=== PATIENT | female | born 1995 | race Caucasian/White ===

== ENCOUNTER 2017-01-04 23:14 | Emergency (ER) | payer OTHER ==
[2017-01-04 23:42] VITALS: BP 124/89; PULSE 72; TEMP 98.3; BMI 21.9
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
== END 2017-01-05 00:56 | disposition home or self-care (01) ==
LOC: JER 23:14
PROC: 0HQ1XZZ Repair Face Skin, External Approach (ICD-10-PCS; principal; 2017-01-04)
DX: S01.112A Laceration without foreign body of left eyelid and periocular area, initial encounter (principal); Y04.2XXA Assault by strike against or bumped into by another person, initial encounter; Y93.89 Activity, other specified; Y92.89 Other specified places as the place of occurrence of the external cause; Y99.8 Other external cause status
CPT/HCPCS: 99282-25

== ENCOUNTER 2022-12-17 16:49 | Emergency (ER) | payer OTHER ==
[2022-12-17 17:27] VITALS: BP 129/78; PULSE 93; RESP 18; TEMP 98.2
== END 2022-12-17 17:30 | disposition left against medical advice (07) ==
LOC: JER 16:49
DX: Z53.9 Procedure and treatment not carried out, unspecified reason (principal)
CPT/HCPCS: 99281-25

== ENCOUNTER 2022-12-17 18:16 | Emergency (ER) | payer OTHER ==
[2022-12-17 18:45] VITALS: BP 122/80; PULSE 80; RESP 18; TEMP 97.8; BMI 32.0
[2022-12-17] MEDS ORDERED: ACETAMINOPHEN 500 MG TABLET (FP) PO ONE (20:02)
[2022-12-17] MEDS ORDERED: ACETAMINOPHEN 500 MG TABLET (FP) ONE (20:04)
[2022-12-17] MEDS ORDERED: LIDOCAINE HCL 1%, 10 MG/ML (20ML VIAL) ONE (21:32)
[2022-12-17] MEDS ORDERED: DIPHTH,PERTUSS(ACELL),TET 0.5 ML DISP.SYRIN IM ONE (21:55)
[2022-12-17] MEDS ORDERED: CEPHALEXIN MONOHYDRATE 500 MG CAPSULE (UD) ONE (22:21)
[2022-12-17] MEDS ORDERED: LIDOCAINE HCL 1%, 10 MG/ML (50 mL VIAL) SQ ONE (22:22)
[2022-12-17] MEDS ORDERED: CEPHALEXIN MONOHYDRATE 500 MG CAPSULE (UD) PO ONE (22:22)
== END 2022-12-17 22:45 | disposition home or self-care (01) ==
LOC: JER 18:16 → JERFT 18:16
PROC: 0HQMXZZ Repair Right Foot Skin, External Approach (ICD-10-PCS; principal; 2022-12-17)
PROC: 3E0234Z Introduction of Serum, Toxoid and Vaccine into Muscle, Percutaneous Approach (ICD-10-PCS; 2022-12-17)
DX: S91.111A Laceration without foreign body of right great toe without damage to nail, initial encounter (principal); Y28.0XXA Contact with sharp glass, undetermined intent, initial encounter; Y93.01 Activity, walking, marching and hiking; Y92.9 Unspecified place or not applicable
CPT/HCPCS: 73630-TC-RT-FY; 99283-25